=== PATIENT | female | born 1960 | race Caucasian/White ===

== ENCOUNTER 2020-05-05 11:23 | Emergency (ER) | payer MEDICARE, OTHER, SELFPAY ==
--- NOTE | ~2020-05-05 | XR_ITS ---
EXAMINATION: XR abdomen obstructive series DATE: 05/05/2020 12:13 INDICATION: Constipation. TECHNIQUE: Upright and supine views of the abdomen on 3 radiographs were obtained. COMPARISON: CT abdomen and pelvis 12/27/2018 FINDINGS: There are no dilated loops of bowel. There is a large volume of stool in the colon. No free intraperitoneal gas. There is a lap band with phi angle of 55 degrees with supine positioning, which is normal. Surgical clips in the right upper quadrant are likely from cholecystectomy. There is a ro d in left femoral diaphysis. IMPRESSION: 1. Nonobstructive bowel gas pattern. Reviewed, dictated and finalized at location A.
[2020-05-05 11:26] VITALS: BP 154/67; PULSE 85; RESP 18; TEMP 36.2; O2SAT 100
--- NOTE | 2020-05-05 12:39 | PC.NURSE ---
Addendum entered by Damian Olivier RN 05/05/20 14:33: Dr. Brown made aware of patient having bm and refusing SSE. Original Note: Pt has returned from radiology, in to administer soap suds enema. Pt states she had a massive bowel movement while in radiology in between films. States had taken a prune-lax last evening and believes that is what helped. Pt states she feels much better and does not need our soap suds enema.
--- NOTE | 2020-05-05 12:55 | PC.NURSE ---
Pt noted per registration staff to be leaving the facility. Staff states that the patient said she felt much better. Dr. Brown made aware.
--- NOTE | 2020-05-05 13:35 | ED.GENADULT ---
HPI - General Adult General Chief complaint: Unspecified Stated complaint: Constipation Time Seen by Provider: 05/05/20 11:50 History of Present Illness HPI narrative: Patient is a 60-year-old female who presents the ER with constipation. Reports she has not pooped in 4 to 7 days. Has history of functional constipation related to her MS. She has been taking prune juice and some Metamucil without resolution of symptoms. She feels like part of her patient stool is actually coming out of her rectum at this time and is causing discomfort. Related Data Home Medications Medication Instructions Recorded Confirmed atorvastatin 40 mg tablet 40 mg PO DAILY 11/30/19 furosemide 40 mg tablet 40 mg PO DAILY tablet 11/30/19 Allergies Allergy/AdvReac Type Severity Reaction Status Date / Time No Known Allergies Allergy Mild Verified 05/05/20 11:29 Review of Systems Constitutional: Constitutional: Denies chills, Denies fever(s) and Denies weakness ENT: Denies nasal congestion and Denies sore throat Gastrointestinal: Gastrointestinal: Denies abdominal pain, Reports constipation, Denies nausea and Denies vomiting PMFSH Past Medical History Medical History (Updated 05/05/20 @ 13:39 by Patricio Brown MD) Depression Diabetes HTN (hypertension) Hyperlipidemia Lower extremity surgery planned titanium rosemary placed in left leg Multiple sclerosis Sleep apnea Surgical History Surgical History (Updated 11/30/19 @ 11:02 by Lavern Jarvis CMA) History of bariatric surgery History of cholecystectomy History of hysterectomy History of quadruple bypass Family History Family History (Updated 05/23/16 @ 23:19 by DOCTOR UNKNOWN) Father Hypertension Family history of diabetes mellitus in first degree relative Acute myocardial infarction Mother Hypertension Cerebrovascular accident Family history of diabetes mellitus in first degree relative Acute myocardial infarction Sibling Family history of diabetes mellitus in first degree relative Other Diabetes mellitus Family history of cardiovascular disease Social History Social History Smoking status: Never smoker Alcohol intake: never Exam Narrative: Exam Narrative: GENERAL: Comfortable-appearing, well-nourished, and in no acute distress. HEAD: Normocephalic, atraumatic. ENT: Mucous membranes moist. CHEST: Clear to auscultation. No respiratory distress. HEART: Regular rate and rhythm. Normal peripheral pulses. ABDOMEN: Soft, nontender, nondistended. EXTREMITIES: Normal range of motion. No edema. NEURO:Alert and oriented x3. Course Course Emergency Course: Patient passed fecal material on her way back from x-ray and feels much better and his walked out of the department. She did not receive her enema. Vital Signs Vital signs: Vital Signs Temperature 97.2 F L 05/05/20 11:26 Pulse Rate 85 05/05/20 11:26 Respiratory Rate 18 05/05/20 11:26 Blood Pressure 154/67 H 05/05/20 11:26 Pulse Oximetry 100 05/05/20 11:26 Temperature 97.2 F L 05/05/20 11:26 Pulse Rate 85 05/05/20 11:26 Respiratory Rate 18 05/05/20 11:26 Blood Pressure 154/67 H 05/05/20 11:26 Pulse Oximetry 100 05/05/20 11:26 Medical Decision Making Vital Signs Vital Signs: Vital Signs Temperature 97.2 F L 05/05/20 11:26 Pulse Rate 85 05/05/20 11:26 Respiratory Rate 18 05/05/20 11:26 Blood Pressure 154/67 H 05/05/20 11:26 Pulse Oximetry 100 05/05/20 11:26 Temperature 97.2 F L 05/05/20 11:26 Pulse Rate 85 05/05/20 11:26 Respiratory Rate 18 05/05/20 11:26 Blood Pressure 154/67 H 05/05/20 11:26 Pulse Oximetry 100 05/05/20 11:26 Imaging Data Radiologist's impression: ITS Impressions Abdomen X-Ray 05/05/20 12:17 IMPRESSION: 1. Nonobstructive bowel gas pattern. Discharge Plan Discharge Clinical Impression: Constipation Patient Disposition: Home, Self-Care Condition: Stable In
== END 2020-05-05 14:00 | disposition home or self-care (01) ==
PROVIDERS: Emergency Provider Emergency Medicine; PCP Internal Medicine
DX: K59.00 Constipation, unspecified (principal); F32.9 Major depressive disorder, single episode, unspecified; E11.9 Type 2 diabetes mellitus without complications; I10 Essential (primary) hypertension; E78.5 Hyperlipidemia, unspecified; G35 Multiple sclerosis; G47.30 Sleep apnea, unspecified; Z98.84 Bariatric surgery status; Z95.1 Presence of aortocoronary bypass graft
CPT/HCPCS: 74019; 99283

== ENCOUNTER 2020-09-25 06:54 | Outpatient (NON) | payer MEDICARE, OTHER, SELFPAY ==
[2020-09-25 23:36] LABS: SARS-CoV-2 RNA PCR Positive
== END 2020-09-25 06:55 ==
LOC: ANHCOVIDDT 06:59
PROVIDERS: PCP Internal Medicine; Visit Provider Nurse Practitioner
DX: U07.1 COVID-19 (principal)
CPT/HCPCS: 87635; C9803; U0003

== ENCOUNTER 2023-12-30 11:53 | Outpatient (CLI) | payer MEDICARE, OTHER, SELFPAY ==
[2023-12-30 18:52] LABS: Basophils Absolute Auto 0.1 K/mm3 (0.0-0.1); Basophils Percent Auto 0.7 % (0.2-1.2); Eosinophils Absolute Auto 0.1 K/mm3 (0-0.3); Eosinophils Percent Auto 1.2 % (0-4.4); Hematocrit 48.3 % (37.0-47.0); Hemoglobin 15.2 g/dL (12.0-15.0); Immature Granulocyte Absolute 0.04 K/mm3 (0.00-0.031); Immature Granulocyte Percent A 0.4 % (0-0.5); Lymphocytes Absolute Auto 2.38 K/mm3 (0.9-3.2); Lymphocytes Percent Auto 22.2 % (18.3-44.2); Mean Corpuscular HGB Conc 31.5 g/dl (32-36); Mean Corpuscular Volume 92.2 fl (80-100); Mean Platelet Volume 10.2 fl (7.4-10.4); Neutrophils Absolute Auto 7.1 K/mm3 (1.3-6.7); Neutrophils Percent Auto 66.5 % (45.5-73.1); Platelet Count Result 309 k/mm3 (150-375); Red Blood Count 5.24 M/mm3 (4.2-5.4); Red Cell Distribution Width 13.6 % (11.5-14.5); White Blood Count 10.7 K/mm3 (4.5-10.0)
[2023-12-30 20:50] LABS: Alanine Aminotransferase 18 U/L (6-35); Albumin Level 4.2 g/dL (3.5-5.1); Alkaline Phosphatase 92 U/L (38-126); Anion Gap 9 mmol/L (8-16); Aspartate Amino Transferase 42 U/L (14-36); Bilirubin,Total 0.5 mg/dL (0.2-1.3); Blood Urea Nitrogen 20 mg/dL (7-17); Calcium 10.3 mg/dL (8.4-10.2); Carbon Dioxide 26 mmol/L (22-30); Chloride 107 mmol/L (98-107); Cholesterol 258 mg/dL (0-200); Estimated Glomerular Filt Rate > 60; Glucose 94 mg/dL (65-110); HDL Direct 49 mg/dL; Potassium 3.8 mmol/L (3.4-5.0); Sodium 142 mmol/L (137-145); Triglycerides 173 mg/dL (<150)
[2023-12-30 21:01] LABS: LDL Cholesterol Direct 155 mg/dL
[2024-01-02 06:06] LABS: Apolipoprotein B 127 mg/dL (<90)
== END 2023-12-30 11:54 | disposition home or self-care (01) ==
LOC: ANHGOSHLAB 11:56
PROVIDERS: PCP Internal Medicine; Visit Provider Nurse Practitioner
DX: E78.5 Hyperlipidemia, unspecified (principal); E11.9 Type 2 diabetes mellitus without complications
CPT/HCPCS: 36415; 80053; 80061; 82172; 83036; 85025